=== PATIENT | female | born 1965 | race African-American/Black ===

== ENCOUNTER 2017-01-22 10:00 | Inpatient (IN) | payer OTHER ==
[2017-01-16 09:04] LABS: Basophils % (Auto) 0.8 % (0.0-1.8); Eosinophils % (Auto) 3.3 % (0.0-4.3); Hematocrit 38.5 % (30.3-42.9); Hemoglobin 13.3 gm/dl (10.1-14.3); Mean Corpuscular HGB Conc 35 % (30-34); Mean Corpuscular Hemoglobin 32 pg (28-32); Mean Corpuscular Volume 92 fl (79-97); Platelet Count 228 K/mm3 (140-440); Red Blood Count 4.18 M/mm3 (3.65-5.03); Red Cell Distribution Width 12.8 % (13.2-15.2); White Blood Count 5.1 K/mm3 (4.5-11.0)
[2017-01-16 09:10] LABS: Bacteria,Urine 1+ /HPF (Negative); Bilirubin,Urine NEG (Negative); Blood,Urine NEG (Negative); Ketones,Urine NEG (Negative); Leukocyte Esterase,Urine MOD (Negative); Mucus,Urine FEW /HPF; Nitrite,Urine NEG (Negative); Protein,Urine <15 mg/dL mg/dL (Negative); Urobilinogen,Urine < 2.0 mg/dL (<2.0)
[2017-01-16 09:23] LABS: Alanine Aminotransferase 12 units/L (7-56); Albumin 4.3 g/dL (3.9-5); Albumin/Globulin Ratio 1.6 %; Alkaline Phosphatase 65 units/L (35-129); Anion Gap 12 mmol/L; Bilirubin,Total 0.4 mg/dL (0.1-1.2); Blood Urea Nitrogen 10 mg/dL (7-17); Calcium 8.9 mg/dL (8.4-10.2); Carbon Dioxide 28 mmol/L (22-30); Chloride 98.6 mmol/L (98-107); Glucose 83 mg/dL (65-100); Potassium 3.9 mmol/L (3.6-5.0); Sodium 135 mmol/L (137-145)
--- NOTE | 2017-01-16 09:26 | Anesthesia Consultation ---
<AMERICA KEVIN - Last Filed: 01/16/17 09:20> Anesthesia Consult and Med Hx Date of service: 01/16/17 (Scheduled for robotic hysterectomy, sacroplexy with Dr. Muñoz on 01/22/17) - Airway Anesthetic Teeth Evaluation: Good ROM Head & Neck: Adequate Mental/Hyoid Distance: Adequate Mallampati Class: Class II Intubation Access Assessment: Probably Good - Pulmonary Exam CTA: Yes - Cardiac Exam Cardiac Exam: RRR - Pre-Operative Health Status ASA Pre-Surgery Classification: ASA1 Proposed Anesthetic Plan: General - Pre-Anesthesia Comment Pre-Anesthesia Comments: History of appendectomy at age 18, reports ponv. - Pulmonary Hx Smoking: No Hx Asthma: No - Cardiovascular System Hx Hypertension: No Hx Coronary Artery Disease: No - Central Nervous System Hx Seizures: No Hx Psychiatric Problems: No - Gastrointestinal Hx Gastroesophageal Reflux Disease: No - Endocrine Hx Renal Disease: No Hx Non-Insulin Dependent Diabetes: No Hx Thyroid Disease: No - Hematic Hx Anemia: No - Other Systems Hx Alcohol Use: No Hx Substance Use: No Hx Cancer: No Hx Obesity: No <YUE PA - Last Filed: 01/16/17 09:28> Anesthesia Consult and Med Hx - Airway Anesthetic Teeth Evaluation: Good ROM Head & Neck: Adequate Mental/Hyoid Distance: Adequate Mallampati Class: Class II Intubation Access Assessment: Probably Good - Pulmonary Exam CTA: Yes - Cardiac Exam Cardiac Exam: RRR - Pre-Operative Health Status ASA Pre-Surgery Classification: ASA1 Proposed Anesthetic Plan: General - Pulmonary Hx Smoking: No Hx Asthma: No - Cardiovascular System Hx Hypertension: No Hx Coronary Artery Disease: No - Central Nervous System Hx Seizures: No Hx Psychiatric Problems: No - Gastrointestinal Hx Gastroesophageal Reflux Disease: No - Endocrine Hx Renal Disease: No Hx Non-Insulin Dependent Diabetes: No Hx Thyroid Disease: No - Hematic Hx Anemia: No - Other Systems Hx Alcohol Use: No Hx Substance Use: No Hx Cancer: No Hx Obesity: No
[~2017-01-22 10:00] MED LIST: DILAUDID IV PRN; LACTATED RINGERS 1,000 ML IV SCH; PEPCID PO NR; VERSED IV NR; ZOFRAN IV NR
[2017-01-22] MEDS ORDERED: ANCEF/STERILE WATER 2 GM/20 ML IV NR (11:00)
[2017-01-22] MEDS ORDERED: FLAGYL 500 MG/100 ML 500 MG/100 ML BAG IV NR (13:00)
[2017-01-22] MEDS ORDERED: DIPRIVAN 10 MG/ML IV ONE (13:17)
[2017-01-22] MEDS ORDERED: DILAUDID ONE (13:17)
[2017-01-22] MEDS ORDERED: METHYLENE BLUE ONE (14:12)
--- NOTE | 2017-01-22 14:12 | Anesthesia Day of Surgery ---
Anesthesia Day of Surgery - Day of Surgery Patient Examined: Yes Patient H&P Reviewed: Yes Patient is NPO: Yes
[2017-01-22] MEDS ORDERED: NEOSPORIN GU IR ONE ×2 (14:13→15:26)
[2017-01-22] MEDS ORDERED: MARCAINE-EPI 0.25%-1:200,000 INFILTRATI ONE (14:15)
[2017-01-22] MEDS ORDERED: ZEMURON IV ONE ×3 (14:16→19:00)
[2017-01-22] MEDS ORDERED: XYLOCAINE MPF 2% ONE (14:16)
[2017-01-22] MEDS ORDERED: MARCAINE 0.25% INFILTRATI ONE ×3 (14:49→15:26)
[2017-01-22] MEDS ORDERED: XYLOCAINE 1% 20 mL ONE (14:49)
[2017-01-22] MEDS ORDERED: NACL P/F VIAL (10 ML) 0 ML ONE (14:50)
[2017-01-22] MEDS ORDERED: PREMARIN VG ONE (15:22)
[2017-01-22] MEDS ORDERED: NACL 0.9% IR ONE (15:26)
[2017-01-22] MEDS ORDERED: LACTATED RINGERS 1,000 ML ONE ×2 (16:33→19:19)
[2017-01-22] MEDS ORDERED: WATER FOR IRRIG STERILE IR ONE (17:18)
[2017-01-22] MEDS ORDERED: ZOFRAN IV PRN ×2 (18:27→19:52)
[2017-01-22] MEDS ORDERED: FLAGYL 500 MG/100 ML IV ONE (19:00)
[2017-01-22] MEDS ORDERED: DECADRON ONE (19:05)
[2017-01-22] MEDS ORDERED: ZOFRAN ONE (19:05)
[2017-01-22] MEDS ORDERED: ROBINUL ONE (19:06)
[2017-01-22] MEDS ORDERED: NEOSTIGMINE ONE (19:06)
--- NOTE | 2017-01-22 19:48 | Short Stay Summary ---
Short Stay Documentation Date of service: 01/22/17 - History H&P: obtained from office - Allergies and Medications Current Medications: Allergies No Known Allergies Allergy (Verified 01/22/17 11:09) Home Medications Medication Instructions Recorded Confirmed Last Taken Type Lactobacillus Acidophilus/Fos 1 tab PO DAILY 01/22/17 01/22/17 01/19/17 History [Acidophilus Probiotic Tablet] Active Medications Cefazolin Sodium (Ancef/Sterile Water 2 Gm/20 Ml) 2 gm IV PREOP NR Stop: 01/22/17 23:59 Famotidine (Pepcid) 20 mg PO PREOP NR Stop: 01/22/17 23:59 Last Admin: 01/22/17 10:39 Dose: 20 mg Hydromorphone HCl (Dilaudid) 0.5 mg IV Q10MIN PRN PRN Reason: Pain , Severe (7-10) Stop: 01/22/17 23:59 Lactated Ringer's (Lactated Ringers) 1,000 mls @ 100 mls/hr IV DIRECT CHARISMA Last Admin: 01/22/17 10:30 Dose: 100 mls/hr Midazolam HCl (Versed) 2 mg IV PREOP NR Stop: 01/22/17 23:59 Ondansetron HCl (Zofran) 4 mg IV PREOP NR Stop: 01/22/17 23:59 Last Admin: 01/22/17 10:40 Dose: 4 mg - Brief post op/procedure progress note Date of procedure: 01/22/17 Pre-op diagnosis: stage 4 uterovaginal prolapse, urinary urgency Post-op diagnosis: same Procedure: EUA, laparoscopic RHIANNON, Robot-assisted RHIANNON, hysterectomy, bilateral salpingectomy , sacrocolpopexy, cystoscopy Anesthesia: GETA Findings: as per postop diagnosis Surgeon: MARISELA JO Estimated blood loss: minimal Pathology: list (uterus and cervix (weighing 80 g), bilateral tubes) Specimen disposition: to lab Condition: stable - Disposition Condition at discharge: Good Disposition: DISCHARGED TO HOME OR SELFCARE Short Stay Discharge Plan Follow up with: BRANDIN CHAIREZ MD [Primary Care Provider] - 7 Days
[2017-01-22] MEDS ORDERED: REGLAN IV PRN (19:52)
[2017-01-22] MEDS ORDERED: PERCOCET 5/325 PO PRN (19:52)
[2017-01-22] MEDS ORDERED: NARCAN 0.4 MG/1 ML IV PRN (19:52)
[2017-01-22] MEDS ORDERED: REGLAN PO PRN (19:52)
[2017-01-22] MEDS ORDERED: MORPHINE IV PRN ×2 (19:52)
[2017-01-22] MEDS ORDERED: MILK OF MAGNESIA PO PRN (19:52)
[2017-01-22] MEDS ORDERED: D5W/0.45% NACL/KCL 20 MEQ 20 MEQ/1,000 ML BAG IV SCH (20:00)
[2017-01-22] MEDS ORDERED: ANCEF/NS 1 GM/50 ML 1 GM/50 ML BAG IV SCH (20:00)
--- NOTE | 2017-01-22 20:20 | Post Anesthesia Evaluation ---
- Post Anesthesia Evaluation Patient Participated: Yes Airway Patent: Yes Stable Respiratory Function: Yes Nausea/Vomiting: No Temp > 96.8F: Yes Pain Manageable: Yes Adequeate Hydration: Yes Anesthesia Complications: No Block Receding Appropriately: Not Applicable
[2017-01-22] MEDS ORDERED: DEMEROL IV PRN (20:21)
[2017-01-22] MEDS: DILAUDID IV PRN ×2 (20:26→20:36)
[2017-01-22] MEDS: FLAGYL 500 MG/100 ML 500 MG/100 ML BAG IV SCH (22:58)
[2017-01-23] MEDS: TORADOL IV SCH ×3 (02:00→13:13)
--- NOTE | 2017-01-23 02:03 | Operative Report ---
PREOPERATIVE DIAGNOSIS: Symptomatic stage IV uterovaginal prolapse and urinary urgency as well as feeling of incomplete bladder emptying. POSTOPERATIVE DIAGNOSES: 1. Symptomatic stage IV uterovaginal prolapse and urinary urgency as well as feeling of incomplete bladder emptying. 2. Pelvic adhesions. PROCEDURE: EUA, laparoscopic lysis of adhesions, robot-assisted lysis of adhesions, robot-assisted hysterectomy, bilateral salpingectomy, sacral colpopexy, cystoscopy. SURGEON: Annalise Muñoz M.D. NUCLEAR LOGGING ENGINEER: Sandra Albarado. ANESTHESIA: General. ESTIMATED BLOOD LOSS: Less than 50, volume in was 1950. PATHOLOGY: Uterus and cervix (weighing at 80 grams), bilateral tubes. SPECIMEN: Sent to the lab. CONDITION: Stable. INDICATIONS: The patient is a 51-year-old female with symptomatic uterovaginal prolapse that is POP-Q stage 4 for which she is requesting definitive surgical treatment. She also has urinary urgency and feeling of incomplete bladder emptying, for which she was brought to the operating room to undergo a robot-assisted hysterectomy, bilateral salpingectomy, sacral colpopexy, cystoscopy, possible anterior and posterior colporrhaphy. DESCRIPTION OF PROCEDURE: The patient was brought to the operating room where general anesthesia was administered without difficulty. She was prepared and draped in the usual sterile fashion, positioned in the dorsal lithotomy position. Her uterus sounded to approximately 8-9 cm. Her cervix was dilated and a large VCare device was placed in her uterus to provide a means of manipulating the uterus during the surgery. Attention was turned to the abdomen where a 5 mm optical trocar was placed in the left upper quadrant subcostal margin midclavicular line. A 12 mm trocar was placed under direct visualization, approximately 3 fingerbreadths superior to the umbilicus in the midline. An 8 and a 12 mm trocars were placed 8-10 cm to the right of the midline. Two 8 mm trocars were placed 8-10 cm to the left of the midline. Another 5 mm trocar was placed on the right side just to the right of the midline between the midline and right superior most trocars. Lysis of adhesions was performed. Once that was done, I was able to elevate the bowel out of the pelvis into the upper abdomen. The sacral promontory then could be visualized and palpated. The robot was properly docked. Inside the abdomen and pelvis, the right utero-ovarian ligament and right round ligament were both cauterized and transected. The same procedure was carried on the contralateral side. I cauterized the tubes at the level of the cornu on both sides and transected them as well. I dissected the bladder from the lower uterine segment. I skeletonized the uterine vessels on both sides, cauterized them and then transected them. In a similar fashion, the bilateral cardinal ligaments were cauterized and transected. I developed the rectovaginal space. Following the groove of the VCare device, a colpotomy was performed and the uterus and cervix were amputated and were removed from the pelvis via the vagina. Next, I used a monopolar scissors to perform a bilateral salpingectomy. The tubes were then removed via the 12 trocar ports on the patient's right side. Hemostasis was obtained by closing the vaginal cuff in a running fashion using 0 V-Loc suture. A second layer of the same suture was used to imbricate over the vaginal cuff and decrease the risk of both cuff dehiscence and vaginal mesh erosion. Using the monopolar scissors, the presacral fat and peritoneum were dissected from the sacral promontory. The anterior longitudinal ligament was clearly visualized. A 3-0 Dubois-Israel sutures were placed into the anterior longitudinal ligament. Attention was then turned back to the vaginal cuff. A large EEA sizer was placed in the vagina. The bladder was further dissected from the anterior vaginal wall. Following this, a Y-shaped piece of Coloplast Restorelle large pore polypropylene mesh was inserted into the abdomen and pelvis. The anterior leaf of the mesh was securely attached to the anterior vaginal wall using approximately 6-0 Dubois-Israel sutures. The posterior leaf of the mesh was securely attached to the posterior vaginal wall using approximately 10 to 12-0 Dubois-Israel sutures. Excess mesh was trimmed. An atrial retractor was used to tunnel retroperitoneally began at the level of sacral promontory and extending down to the rectovaginal space. The dual blade retractor was then used to grasp the tail of the Y-shaped mesh and bring it out through the tunnel back out at the level of sacral promontory. With the mesh under no tension, the tail of the mesh was then securely attached to the anterior longitudinal ligament via the 3-0 Dubois-Israel sutures, which had been previously placed there. Excess mesh again was trimmed. Hemostasis was visualized. A 10 mL of Tisseel was generously applied to include the retroperitoneal tunnel, over the vaginal cuff, as well as over the bilateral retroperitoneal spaces. The mesh was then completely retroperitonealized using 3-0 V-Loc suture. Following this, 3 sheets of Interceed were applied over the peritoneal incision to provide an additional barrier between the underlying mesh and the overlying bowel. Hemostasis was confirmed. All instruments were removed from the abdomen and pelvis. All fascial incisions greater than 8 mm were closed with 0 Vicryl suture. Skin was closed in subcuticular fashion and Dermabond was applied over the skin incisions. The patient was given 10 mL of methylene blue and a diagnostic cystoscopy was performed with the findings as noted above. Following this, the cystoscope was removed and the Saldana catheter was reinserted. Examination of the vagina revealed very good support of the vaginal vault, anterior and posterior vaginal hawkins. It was felt not necessary to proceed with an anterior or posterior colporrhaphy. The patient tolerated the procedure well and was taken to the recovery room awake in stable condition. JOB# [id number] MINOR/KISHA
[2017-01-23] MEDS: FLAGYL 500 MG/100 ML 500 MG/100 ML BAG IV SCH (05:26)
[2017-01-23 07:03] LABS: Basophils % (Auto) 0.4 % (0.0-1.8); Hematocrit 38.6 % (30.3-42.9); Hemoglobin 13.2 gm/dl (10.1-14.3); Mean Corpuscular HGB Conc 34 % (30-34); Mean Corpuscular Hemoglobin 32 pg (28-32); Mean Corpuscular Volume 92 fl (79-97); Platelet Count 168 K/mm3 (140-440); Red Blood Count 4.18 M/mm3 (3.65-5.03); Red Cell Distribution Width 12.6 % (13.2-15.2); White Blood Count 7.7 K/mm3 (4.5-11.0)
[2017-01-23 07:12] LABS: Anion Gap 14 mmol/L; Blood Urea Nitrogen 5 mg/dL (7-17); Calcium 8.1 mg/dL (8.4-10.2); Carbon Dioxide 25 mmol/L (22-30); Chloride 101.8 mmol/L (98-107); Glucose 148 mg/dL (65-100); Magnesium 1.6 mg/dL (1.7-2.3); Potassium 4.2 mmol/L (3.6-5.0); Sodium 137 mmol/L (137-145)
--- NOTE | 2017-01-23 08:15 | Admit Criteria Form ---
Admission Criteria Documentation: AMBULATORY SURGERY EXCEPTION CRITERIA Ambulatory Surgery Exception Criteria ( Place 'X' for any and all applicable criteria): Surgery or procedure performed on ambulatory basis may require inpatient stay for[A] ANY ONE of the following(1)(2)(3)(4)(5)(6)(7)(8)(9): [] I. A preoperative situation, condition, or finding that warrants inpatient stay as indicated by ANY ONE of the following: [] a) Inpatient care needed because of severity of a disease or condition rather than the surgery (eg, severe cardiac or respiratory disease, severe infection) (15) (16 ) (17) (18) [] b) Emergent procedure (eg, angioplasty for acute ischemia)(19) [] c) Complex surgical approach or situation as indicated by ANY ONE of the following(3): [] i) Open approach needed instead of usual endoscopic, transcatheter, or other less invasive procedure [] ii) Difficult approach because of previous operation [] iii) Airway monitoring required after open neck procedures(20)(21) [] iv) Large mass requiring unusually extensive dissection [] v) Additional complicating feature requiring inpatient care (eg, drain management)(22(23): [] d) Major surgery in a pt with high anesthetic risk as indicated by ANY ONE of the following (2)(3)(5)(7)(8): [] i) ASA risk class III or higher (severe systemic disease impairing function) [D] [] ii) Advanced age (eg, older than 85 years)(14)(24) [] iii) Symptomatic heart failure(25) [] iv) Symptomatic asthma or COPD(8)(21) [] v) Morbid obesity with hemodynamic or respiratory problems(20)( 21)(26)(27) [] vi) Obstructive sleep apnea(20)(21) [] vii) Former premature infants who are younger than 60 weeks [] viii) High risk for severe postoperative abnormalities (eg, severe postoperative hypocalcemia after parathyroidectomy for severe hyperparathyroidism)(27)( 28) [] ix) Unstable angina(25) [] e) Drug-related risk requiring inpatient stay as indicated by ANY ONE of the following(5)(10)(14)(32)(33) [] i) Procedure requires discontinuing drugs or other therapy (eg , antiarrhythmic medication, antiseizure medication), which necessitates inpatient observation or treatment.(18)(31) [] ii) Major surgery and high risk drug use as indicated by ANY ONE of the following: [] 1) Active abuse of cocaine or similar drug [] 2) Monoamine oxidase inhibitor use [] 3) Other drug identified as posing risk [] f) Inadequate outpatient care situation as indicated by ANY ONE of the following(5)(10)(14)(32)(33) [] i) Patient lives remote from medical facility and procedure has urgent complication potential, and temporary nearby residence cannot be arranged [] ii) Patient will have postprocedure incapacitation and inadequate assistance at home, or alternative level of care cannot be arranged. [] iii) Patient will have long general anesthesia or procedure side effect resolution time, and competent person to stay with patient on first postoperative night at home or alternative level of care cannot be arranged. []iv) Other inadequate outpatient situation that cannot be handled by other means [X] II. A perioperative event, condition, or finding that warrants inpatient stay as indicated by ANY ONE of the following (1)(2)(3): [X] a) Inadequate physiologic recovery: cardiovascular, respiratory, or hemodynamic status not normal or near preoperative baseline(18) [] b) Hemodynamic instability [] c) Patient not alert with near normal or baseline mental status [] d) Temperature not normal or as expected and not appropriate for outpatient treatment of condition [] e) Ambulatory or appropriate activity level status not yet achieved post procedure [E](34)(35)(36) [] f) Operative site not appropriate (eg, unexpected or excessive drainage or bleeding) [] g) Postoperative effects not resolved or adequately managed (eg, significant pain or vomiting not appropriate for outpatient or next level of care)(10)(12) [] h) Complicating features requiring inpatient care as indicated by ANY ONE of the following(37): [] i) Severe complications of procedure (eg, bowel injury, airway compromise, vascular injury,severe hemorrhage) [] ii) Extensive (eg, dissection far beyond usual scope of procedure ) or prolonged (eg, 120 minutes beyond usual) surgery needed requiring inpatient postoperative care [] iii) Conversion to an open or complex procedure that requires inpatient care (eg, open vs laparoscopic cholecystectomy, abdominal vs vaginal hysterectomy)(38) [] iv) Comorbid condition or test result identified during or post procedure that requires inpatient care (7) [] v) Malignant hyperthermia(30) [] vi) Other complicating feature requiring inpatient care(22)(23) Inpatient stay may be needed until ALL of the following are present (1)(2)(3)(4) (5)(6)(10)(14)(33)(40): []a) Physiologic recovery: cardiovascular, respiratory, and hemodynamic status normal or near preoperative baseline []b) Hemodynamic stability []c) Patient alert, with near normal or baseline mental status []d) Temperature appropriate: patient afebrile or temperature appropriate for outpt treatment of condition []e) Activity level appropriate: ambulatory or appropriate activity level post procedure []f) Operative site appropriate as indicated by ALL of the following: []i) Site dry or with expected drainage []ii) Any blood noted is as expected for procedure. []g) Postoperative effects resolved or managed as indicated by ALL of the following: []i) Pain management appropriate for outpatient (or next level of) care(10) []ii) Minimal nausea and vomiting: if present, successfully treated with oral medication(12) []iii) Headache, dizziness, or drowsiness (if present) are mild. []h) Voiding status acceptable as indicated by ANY ONE of the following: []i) Voiding spontaneously []ii) No voiding but instructions given for follow-up in 6 to 8 hours []iii) Urinary catheter in place, and instructions given for follow-up []i) Complicating features requiring inpatient care manageable at a lower level of care(37) []j) Comorbid conditions manageable at a lower level of care(37) The original [employer] content created by [employer] has been revised. The portions of the content which have been revised are identified through the use of italic text or in bold, and [employer] has neither reviewed nor approved the modified material. All other unmodified content is copyright [employer]. Please see references footnoted in the original [employer] edition 2016 Admission Criteria Met: Yes
[2017-01-23] MEDS ORDERED: PROTONIX IV SCH (10:00)
[2017-01-23 16:23] VITALS: BP 97/50
== END 2017-01-23 18:40 | disposition home or self-care (01) | DRG 743 ==
LOC: OR 10:00 → 2B-SURG 19:17
PROVIDERS: ADMIT Obstetrics & Gynecology Gynecology; ATTEND Obstetrics & Gynecology Gynecology
PROC: 0UT94ZZ Resection of Uterus, Percutaneous Endoscopic Approach (ICD-10-PCS; principal; 2017-01-22)
PROC: 0USG4ZZ Reposition Vagina, Percutaneous Endoscopic Approach (ICD-10-PCS; 2017-01-22)
PROC: 0UT74ZZ Resection of Bilateral Fallopian Tubes, Percutaneous Endoscopic Approach (ICD-10-PCS; 2017-01-22)
PROC: 8E0W4CZ Robotic Assisted Procedure of Trunk Region, Percutaneous Endoscopic Approach (ICD-10-PCS; 2017-01-22)
DX: N81.4 Uterovaginal prolapse, unspecified (principal); N73.6 Female pelvic peritoneal adhesions (postinfective); R39.15 Urgency of urination; K57.90 Diverticulosis of intestine, part unspecified, without perforation or abscess without bleeding
CPT/HCPCS: 36415; 80048; 80053; 81001; 83735; 84703; 85025; 86850; 86900; 86901; 87086; 88305; 88307; A4217; C1765; C1781; C9113; C9250; J0690; J1100; J1170; J1885; J2250; J2270; J2405; J2704; J2710; J7120; Q9968

== ENCOUNTER 2017-02-06 18:37 | Emergency (ER) | payer OTHER ==
[2017-02-06 19:44] LABS: Basophils % (Auto) 0.2 % (0.0-1.8); Eosinophils % (Auto) 0.4 % (0.0-4.3); Hemoglobin 12.3 gm/dl (10.1-14.3); Mean Corpuscular HGB Conc 35 % (30-34); Mean Corpuscular Hemoglobin 32 pg (28-32); Mean Corpuscular Volume 92 fl (79-97); Platelet Count 282 K/mm3 (140-440); Red Blood Count 3.81 M/mm3 (3.65-5.03); Red Cell Distribution Width 12.3 % (13.2-15.2); White Blood Count 11.1 K/mm3 (4.5-11.0)
[2017-02-06 20:06] LABS: Alanine Aminotransferase 9 units/L (7-56); Albumin 3.6 g/dL (3.9-5); Alkaline Phosphatase 76 units/L (35-129); Anion Gap 18 mmol/L; Blood Urea Nitrogen 6 mg/dL (7-17); Calcium 8.9 mg/dL (8.4-10.2); Carbon Dioxide 25 mmol/L (22-30); Chloride 97.2 mmol/L (98-107); Glucose 88 mg/dL (65-100); Lipase 33 units/L (13-60); Potassium 3.7 mmol/L (3.6-5.0); Sodium 136 mmol/L (137-145); Total Protein 7.3 g/dL (6.3-8.2)
[2017-02-06 20:41] LABS: Bilirubin,Urine NEG (Negative); Blood,Urine NEG (Negative); Ketones,Urine TR mg/dL (Negative); Leukocyte Esterase,Urine SM (Negative); Nitrite,Urine NEG (Negative); Protein,Urine <15 mg/dL mg/dL (Negative); Urobilinogen,Urine < 2.0 mg/dL (<2.0)
--- NOTE | 2017-02-07 01:47 | Emergency Department Report ---
ED General Adult HPI - General Chief complaint: Abdominal Pain Stated complaint: PAIN Time Seen by Provider: 02/07/17 01:37 Source: patient, family, RN notes reviewed, old records reviewed Mode of arrival: Ambulatory Limitations: No Limitations - History of Present Illness Initial comments: This is a 51-year-old female. She was previously unknown to me. The patient has a past medical history of diverticulosis, recently had a large gynecologic surgery at this hospital by Dr. Annalise Muñoz; patient was supposed to have a laparoscopic robotic hysterectomy, bilateral salpingectomy. The patient presents to the ER with abdominal pain. Abdominal pain is suprapubic, and lower quadrants. It is achy. It increases with palpation, and decreases with rest. No chest pain or shortness of breath. No documented fevers. No irritative urinary symptoms. No hematemesis of bright red blood per rectum. She describes the pain as crampy in nature. -: Gradual Location: abdomen Severity scale (0 -10): 4 Quality: aching Consistency: constant Improves with: rest Worsens with: movement Associated Symptoms: denies: confusion, chest pain, cough, diaphoresis, fever/ chills, headaches, loss of appetite, shortness of breath, syncope, weakness - Related Data Home Medications Medication Instructions Recorded Confirmed Last Taken Lactobacillus Acidophilus/Fos 1 tab PO DAILY 01/22/17 01/22/17 01/19/17 [Acidophilus Probiotic Tablet] Previous Rx's Medication Instructions Recorded Last Taken Type Ciprofloxacin HCl [Ciprofloxacin 500 mg PO Q12HR #10 tab 02/07/17 Unknown Rx TAB] Dicyclomine [Bentyl] 10 mg PO QID PRN #20 capsule 02/07/17 Unknown Rx Metoclopramide [Reglan] 10 mg PO QID PRN #30 tablet 02/07/17 Unknown Rx metroNIDAZOLE [Flagyl] 500 mg PO Q8HR #15 tab 02/07/17 Unknown Rx oxyCODONE [Roxicodone] 5 mg PO Q6HR PRN #15 tablet 02/07/17 Unknown Rx Allergies Allergy/AdvReac Type Severity Reaction Status Date / Time No Known Allergies Allergy Verified 01/22/17 11:09 ED Review of Systems ROS: Stated complaint: PAIN Other details as noted in HPI Constitutional: denies: fever Eyes: denies: vision change ENT: denies: epistaxis Respiratory: denies: cough Cardiovascular: denies: chest pain Gastrointestinal: abdominal pain Genitourinary: as per HPI Musculoskeletal: denies: back pain Skin: denies: lesions Neurological: denies: weakness Psychiatric: denies: depression ED Past Medical Hx - Past Medical History Previous Medical History?: Yes Hx Hypertension: No Hx Congestive Heart Failure: No Hx Diabetes: No Hx Renal Disease: No Hx Seizures: No Hx Asthma: No Hx HIV: No Additional medical history: diverticulosis - Surgical History Hx Appendectomy: Yes Additional Surgical History: Partial Hyst 01/22/17 - Social History Smoking Status: Never Smoker Substance Use Type: None - Medications Home Medications: Home Medications Medication Instructions Recorded Confirmed Last Taken Type Lactobacillus Acidophilus/Fos 1 tab PO DAILY 01/22/17 01/22/17 01/19/17 History [Acidophilus Probiotic Tablet] Ciprofloxacin HCl [Ciprofloxacin 500 mg PO Q12HR #10 tab 02/07/17 Unknown Rx TAB] Dicyclomine [Bentyl] 10 mg PO QID PRN #20 capsule 02/07/17 Unknown Rx Metoclopramide [Reglan] 10 mg PO QID PRN #30 tablet 02/07/17 Unknown Rx metroNIDAZOLE [Flagyl] 500 mg PO Q8HR #15 tab 02/07/17 Unknown Rx oxyCODONE [Roxicodone] 5 mg PO Q6HR PRN #15 tablet 02/07/17 Unknown Rx ED Physical Exam - General Limitations: No Limitations General appearance: alert, in no apparent distress - Head Head exam: Present: atraumatic, normocephalic - Eye Eye exam: Present: normal appearance, EOMI. Absent: nystagmus - ENT ENT exam: Present: normal exam, normal orophraynx, mucous membranes moist, normal external ear exam - Neck Neck exam: Present: normal inspection, full ROM. Absent: tenderness, meningismus - Respiratory Respiratory exam: Present: normal lung sounds bilaterally. Absent: respiratory distress, wheezes, rales, rhonchi, stridor, chest wall tenderness, accessory muscle use, decreased breath sounds, prolonged expiratory - Cardiovascular Cardiovascular Exam: Present: regular rate, normal rhythm, normal heart sounds. Absent: bradycardia, tachycardia, systolic murmur, diastolic murmur, rubs, gallop - GI/Abdominal GI/Abdominal exam: Present: soft, tenderness, normal bowel sounds, other (the surgical incision sites appear to be healing well. There is no redness, pus or streaking or crepitus. There is mild lower abdominal tenderness, there is no rebound, guarding or peritoneal signs.). Absent: distended, guarding, rebound, rigid, pulsatile mass - Extremities Exam Extremities exam: Present: normal inspection, full ROM, normal capillary refill. Absent: tenderness, pedal edema, joint swelling, calf tenderness - Back Exam Back exam: Present: normal inspection, full ROM. Absent: tenderness, CVA tenderness (R), CVA tenderness (L), muscle spasm, paraspinal tenderness, vertebral tenderness - Neurological Exam Neurological exam: Present: alert, other (Extraocular movements intact. Tongue midline. No facial droop. Facial sensation intact to light touch in the V1, V2 , V3 distribution bilaterally. 5 and 5 strength in 4 extremities.. Sensation is intact to light touch in 4 extremities.). Absent: motor sensory deficit - Psychiatric Psychiatric exam: Present: normal affect, normal mood - Skin Skin exam: Present: warm, dry, intact, normal color. Absent: rash ED Course Vital Signs 02/06/17 02/07/17 02/07/17 19:14 01:00 02:23 Temperature 99.8 F H Pulse Rate 83 Respiratory 18 18 18 Rate Blood Pressure 118/72 [Right] O2 Sat by Pulse 100 99 Oximetry 02/07/17 02/07/17 02/07/17 03:21 04:05 05:10 Temperature 99.1 F Pulse Rate 75 65 Respiratory 20 18 Rate Blood Pressure 95/51 95/51 [Right] O2 Sat by Pulse 100 100 Oximetry - Reevaluation(s) Reevaluation #1: 02/07/17 04:01 differential diagnosis: Urinary tract infection, postoperative infection, postoperative pain, constipation Assessment and plan: 51-year-old female with lower abdominal pain status post hysterectomy, low-grade temperature. Rectal temperature is pending. CT scan of the abdomen and pelvis with IV and oral contrast is pending. The patient has tolerated liquid feeds without difficulty. Her laboratory studies are otherwise unremarkable. She is verbal and written consented for CT scan of the abdomen and pelvis with IV and oral contrast. We will reassess once this has resulted. Reevaluation #2: 02/07/17 05:[address] scan with IV and oral contrast demonstrates mild colitis , otherwise no acute surgical complications. Patient tolerating liquid feeds. Feels improved. Will be discharged with ciprofloxacin, Flagyl, pain medication , nausea medication. The case is discussed with her gynecologic surgeon, Dr. Muñoz, who agrees to this plan of care. Return precautions are reviewed. ED Medical Decision Making - Lab Data Result diagrams: 02/06/17 19:30 02/06/17 19:30 Vital Signs 02/06/17 02/07/17 02/07/17 19:14 01:00 02:23 Temperature 99.8 F H Pulse Rate 83 Respiratory 18 18 18 Rate Blood Pressure 118/72 [Right] O2 Sat by Pulse 100 99 Oximetry 02/07/17 03:21 Temperature Pulse Rate 75 Respiratory 20 Rate Blood Pressure 95/51 [Right] O2 Sat by Pulse 100 Oximetry Lab Results 02/06/17 02/06/17 02/06/17 Range/Units 19:30 19:30 20:00 WBC 11.1 H (4.5-11.0) K/mm3 RBC 3.81 (3.65-5.03) M/mm3 Hgb 12.3 (10.1-14.3) gm/dl Hct 35.0 (30.3-42.9) % MCV 92 (79-97) fl MCH 32 (28-32) pg MCHC 35 H (30-34) % RDW 12.3 L (13.2-15.2) % Plt Count 282 (140-440) K/mm3 Lymph % (Auto) 13.1 L (13.4-35.0) % [place] % (Auto) 6.4 (0.0-7.3) % Eos % (Auto) 0.4 (0.0-4.3) % Baso % (Auto) 0.2 (0.0-1.8) % Lymph # 1.5 (1.2-5.4) K/mm3 [place] # 0.7 (0.0-0.8) K/mm3 Eos # 0.0 (0.0-0.4) K/mm3 Baso # 0.0 (0.0-0.1) K/mm3 Seg Neutrophils % 79.9 H (40.0-70.0) % Seg Neutrophils # 8.9 H (1.8-7.7) K/mm3 Sodium 136 L (137-145) mmol/L Potassium 3.7 (3.6-5.0) mmol/L Chloride 97.2 L (98-107) mmol/L Carbon Dioxide 25 (22-30) mmol/L Anion Gap 18 mmol/L BUN 6 L (7-17) mg/dL Creatinine 0.4 L (0.7-1.2) mg/dL Estimated GFR > 60 ml/min BUN/Creatinine Ratio 15.00 % Glucose 88 (65-100) mg/dL Lactic Acid (0.7-2.0) mmol/L Calcium 8.9 (8.4-10.2) mg/dL Total Bilirubin 0.60 (0.1-1.2) mg/dL AST 13 (5-40) units/L ALT 9 (7-56) units/L Alkaline Phosphatase 76 (35-129) units/L Total Protein 7.3 (6.3-8.2) g/dL Albumin 3.6 L (3.9-5) g/dL Albumin/Globulin Ratio 1.0 % Lipase 33 (13-60) units/L Urine Color Yellow (Yellow) Urine Turbidity Clear (Clear) Urine pH 7.0 (5.0-7.0) Ur Specific [place] 1.006 (1.003-1.030) Urine Protein <15 mg/dl (Negative) mg/dL Urine Glucose (UA) Neg (Negative) mg/dL Urine Ketones Tr (Negative) mg/dL Urine Blood Neg (Negative) Urine Nitrite Neg (Negative) Urine Bilirubin Neg (Negative) Urine Urobilinogen < 2.0 (<2.0) mg/dL Ur Leukocyte Esterase Sm (Negative) Urine WBC (Auto) 6.0 (0.0-6.0) /HPF Urine RBC (Auto) 3.0 (0.0-6.0) /HPF U Epithel Cells (Auto) 1.0 (0-13.0) /HPF 02/07/17 Range/Units 02:00 WBC (4.5-11.0) K/mm3 RBC (3.65-5.03) M/mm3 Hgb (10.1-14.3) gm/dl Hct (30.3-42.9) % MCV (79-97) fl MCH (28-32) pg MCHC (30-34) % RDW (13.2-15.2) % Plt Count (140-440) K/mm3 Lymph % (Auto) (13.4-35.0) % [place] % (Auto) (0.0-7.3) % Eos % (Auto) (0.0-4.3) % Baso % (Auto) (0.0-1.8) % Lymph # (1.2-5.4) K/mm3 [place] # (0.0-0.8) K/mm3 Eos # (0.0-0.4) K/mm3 Baso # (0.0-0.1) K/mm3 Seg Neutrophils % (40.0-70.0) % Seg Neutrophils # (1.8-7.7) K/mm3 Sodium (137-145) mmol/L Potassium (3.6-5.0) mmol/L Chloride (98-107) mmol/L Carbon Dioxide (22-30) mmol/L Anion Gap mmol/L BUN (7-17) mg/dL Creatinine (0.7-1.2) mg/dL Estimated GFR ml/min BUN/Creatinine Ratio % Glucose (65-100) mg/dL Lactic Acid 0.60 L (0.7-2.0) mmol/L Calcium (8.4-10.2) mg/dL Total Bilirubin (0.1-1.2) mg/dL AST (5-40) units/L ALT (7-56) units/L Alkaline Phosphatase (35-129) units/L Total Protein (6.3-8.2) g/dL Albumin (3.9-5) g/dL Albumin/Globulin Ratio % Lipase (13-60) units/L Urine Color (Yellow) Urine Turbidity (Clear) Urine pH (5.0-7.0) Ur Specific [place] (1.003-1.030) Urine Protein (Negative) mg/dL Urine Glucose (UA) (Negative) mg/dL Urine Ketones (Negative) mg/dL Urine Blood (Negative) Urine Nitrite (Negative) Urine Bilirubin (Negative) Urine Urobilinogen (<2.0) mg/dL Ur Leukocyte Esterase (Negative) Urine WBC (Auto) (0.0-6.0) /HPF Urine RBC (Auto) (0.0-6.0) /HPF U Epithel Cells (Auto) (0-13.0) /HPF - Radiology Data Radiology results: report reviewed, image reviewed CT scan of the abdomen and pelvis with IV and oral contrast demonstrates a distal colitis with no obvious other inflammatory changes. Critical care attestation.: If time is entered above; I have spent that time in minutes in the direct care of this critically ill patient, excluding procedure time. ED Disposition Clinical Impression: Abdominal pain Disposition: DISCHARGED TO HOME OR SELFCARE Is pt being admited?: No Does the pt Need Aspirin: No Condition: Stable Instructions: Abdominal Pain (ED) Additional Instructions: Take the pain medication, nausea medication, antibiotic medication as directed. Do not consume alcohol while taking these medications. Follow up with the gastroenterology specialist within the next week. Dr. Saucedo is a local gastroenterology specialist. Return to the ER right away with new pain, worsened pain, migration of pain, fevers or chills, intractable nausea or vomiting, inability to tolerate liquid feeds. Referrals: BRANDIN CHAIREZ MD [Primary Care Provider] - 3-5 Days LEANN SAUCEDO MD [Staff Physician] - 3-5 Days
[2017-02-07] MEDS: NACL 0.9% 1000 ML 1,000 ML IV ONE ×2 (02:20→05:18)
[2017-02-07] MEDS: ZOFRAN IV ONE (02:20)
[2017-02-07] MEDS: MORPHINE IV ONE (02:23)
--- NOTE | 2017-02-07 04:49 | Cat Scan Report ---
FINAL REPORT PROCEDURE: CT ABDOMEN PELVIS W CON TECHNIQUE: Computerized axial tomography of the abdomen and pelvis was performed after the IV injection of iodinated nonionic contrast. HISTORY: abd pain PARTIAL HYSTERECTOMY 01/22/17 LOWER ABD CRAMPING HX DIVERTICULOSIS COMPARISON: No prior studies are available for comparison. FINDINGS: Visualized lower thorax: No significant abnormality. Liver: Normal size and attenuation. Spleen: Normal size and attenuation. Gallbladder and biliary system: Normal. Pancreas: Normal. Adrenals: Normal. Kidneys: Both kidneys have a normal size. No hydronephrosis. No renal masses or stones the. GI tract: Stomach is normal. The small bowel has a normal caliber. No obstruction is seen. The cecum and appendix are normal. There is some thickening of the bowel wall involving the sigmoid colon, mild colitis is suspected. No complication.. Lymph nodes and mesentery: Normal. Vasculature: Normal. Bladder: Normal. Reproductive organs: Suspected cyst left ovary measures 2.5 centimeters.. Peritoneum: No free fluid. Musculoskeletal structures: No significant abnormality. Other: None. IMPRESSION: Mild inflammatory change of the sigmoid colon consistent with mild colitis. No complication. Suspected 2.5 centimeter cyst in the left ovary. No evidence of intestinal or urinary tract obstruction.
[2017-02-07 05:29] VITALS: BP 96/51
[2017-02-07] MEDS: FLAGYL PO ONE (05:50)
[2017-02-07] MEDS: LEVAQUIN PO ONE (05:50)
== END 2017-02-07 05:50 | disposition home or self-care (01) ==
LOC: ED 18:37
DX: R10.31 Right lower quadrant pain (principal); R10.32 Left lower quadrant pain; K57.90 Diverticulosis of intestine, part unspecified, without perforation or abscess without bleeding
CPT/HCPCS: 36415; 74177; 80053; 81001; 82140; 83690; 85025; 96361; 96374; 96375; 99284; J2270; J2405; J7030; Q9967